=== PATIENT | female | born 1980 | race Hispanic/Latino ===

== ENCOUNTER 2018-12-12 20:51 | Emergency (ER) | payer OTHER ==
[2018-12-12 21:26] VITALS: O2SAT 100
--- NOTE | 2018-12-12 22:06 | C.PDOC ---
History Of Present Illness 38 year old female is brought to the ED for evaluation of an anxiety attack. Patient reports she feels her legs and hand a numb, hyperventilating. Patient instructed in slow breathing. Patient denies SI/HI, hallucinations, injury, fall, trauma. Chief Complaint (Nursing): Psychiatric Evaluation History Per: Patient, EMS History/Exam Limitations: no limitations Onset/Duration Of Symptoms: Hrs Current Symptoms Are (Timing): Still Present Suicide/Self Injury Attempted (Context): None Modifying Factor(s): None Associated Symptoms: Anxiety. denies: Depression, Suicidal Thoughts, Suicidal Plan Recent travel outside of the [place]: No Additional History Per: Patient, EMS Past Medical History Reviewed: Historical Data, Nursing Documentation, Vital Signs Vital Signs: Last Vital Signs Temp 97.9 F 12/12/18 21:01 Pulse 104 H 12/12/18 21:01 Resp 32 H 12/12/18 21:01 BP 132/76 12/12/18 21:01 Pulse Ox 100 12/12/18 21:01 - Medical History PMH: Anxiety, Hypothyroidism Denies: Chronic Kidney Disease Surgical History: No Surg Hx Family History: States: Unknown Family Hx - Social History Hx Alcohol Use: Yes Hx Substance Use: No - Immunization History Hx Tetanus Toxoid Vaccination: No Hx Influenza Vaccination: No Hx Pneumococcal Vaccination: No Review Of Systems Constitutional: Negative for: Fever, Chills Cardiovascular: Negative for: Chest Pain, Palpitations Respiratory: Negative for: Cough, Shortness of Breath Gastrointestinal: Negative for: Nausea, Vomiting, Abdominal Pain Skin: Negative for: Rash Neurological: Negative for: Weakness, Numbness Psych: Positive for: Anxiety Physical Exam - Physical Exam Appears: Non-toxic, Other (anxious) Skin: Normal Color, Warm, Dry Head: Atraumatic, Normacephalic Eye(s): bilateral: Normal Inspection Neck: Normal ROM, Supple Chest: Symmetrical Cardiovascular: Rhythm Regular Respiratory: Normal Breath Sounds, No Rales, No Rhonchi, No Wheezing Gastrointestinal/Abdominal: Soft, No Tenderness, No Guarding, No Rebound Extremity: Normal ROM, No Tenderness, No Swelling Neurological/Psych: Oriented x3, Normal Speech, Normal Cognition Gait: Steady ED Course And Treatment O2 Sat by Pulse Oximetry: 100 (ON RA) Pulse Ox Interpretation: Normal Medical Decision Making Medical Decision Making: panic anxiety relieved with Xanax PO no s/s of hyperthyroidism defer w/u Disposition Doctor Will See Patient In The: Office Counseled Patient/Family Regarding: Studies Performed, Diagnosis - Disposition Referrals: [facility] [Outside] [facility] [Outside] [facility] [Outside] [facility] [Outside] Disposition: HOME/ ROUTINE Disposition Time: 22:05 Condition: GOOD Additional Instructions: you received Xanax 0.5 mg by mouth with excellent relief of anxiety/panic outpatient follow-up as needed. Instructions: Panic Disorder, Anxiety, Adult (DC) Forms: [facility] ([place]ian) - Clinical Impression Clinical Impression: Panic attack - Scribe Statement The provider has reviewed the documentation as recorded by the Scribe Ivan Hernandez All medical record entries made by the Scribe were at my direction and personally dictated by me. I have reviewed the chart and agree that the record accurately reflects my personal performance of the history, physical exam, medical decision making, and the department course for this patient. I have also personally directed, reviewed, and agree with the discharge instructions and disposition.
[2018-12-12 22:31] VITALS: BP 155/100; PULSE 75; RESP 20; TEMP 99.1
== END 2018-12-12 22:17 | disposition home or self-care (01) ==
LOC: C.ER 20:51
DX: F41.0 Panic disorder [episodic paroxysmal anxiety] (principal)